=== PATIENT | male | born 1945 | race Native Hawaiian/Other Pacific Islander ===

== ENCOUNTER 2018-02-06 18:10 | Emergency (ER) | payer OTHER ==
[~2018-02-06] VITALS: Ht 162.6 cm; Wt 74.8 kg
[2018-02-06 19:28] LABS: PLATELET COUNT 269 K/uL (142-355)
[2018-02-06 19:50] LABS: POTASSIUM 3.7 mmol/L (3.6-5.2)
[2018-02-06 20:20] VITALS: BP 139/64; TEMP 97.8
[2018-02-07] MEDS ORDERED: CYAN10009 IM (00:10)
[2018-02-07] MEDS ORDERED: AMLODIPINE BESYLATE PO (00:11)
[2018-02-07] MEDS ORDERED: ASPIRIN 81 LOW81 MG PO (00:11)
[2018-02-07] MEDS ORDERED: RISP1TAB PO (00:12)
[2018-02-07] MEDS ORDERED: BENZTROPINE0.5 MG PO (00:15)
[2018-02-07] MEDS ORDERED: RISP2TAB2 PO (00:15)
[2018-02-07] MEDS ORDERED: SIMV10TA PO (00:17)
[2018-05-07] MEDS ORDERED: ASPI81TA4 PO (18:02)
[2018-05-07] MEDS ORDERED: BENZTROPINE0.5 MG PO (18:02)
[2018-05-07] MEDS ORDERED: AMLODIPINE BESYLATE PO (18:02)
[2018-05-07] MEDS ORDERED: MAGNSUS68 PO (18:03)
[2018-05-07] MEDS ORDERED: MAGNESIUM OXID400 M1 PO (18:04)
[2018-05-07] MEDS ORDERED: OXCARBAZEPIN150 MG PO (18:04)
[2018-05-07] MEDS ORDERED: RISP1TAB PO ×2 (18:06→18:07)
[2018-05-07] MEDS ORDERED: PANTOPRAZOLE 40MG TA PO (18:06)
[2018-05-07] MEDS ORDERED: OLANZAPINE5 MG PO (18:08)
[2018-05-07] MEDS ORDERED: MULTTAB52 PO (18:08)
[2018-05-07] MEDS ORDERED: SIMV10TA PO (18:08)
== END 2018-02-06 20:20 | disposition other institution (70) ==
LOC: ED 18:10
DX: G30.9 Alzheimer's disease, unspecified (principal); F02.80 Dementia in other diseases classified elsewhere, unspecified severity, without behavioral disturbance, psychotic disturbance, mood disturbance, and anxiety; Z00.8 Encounter for other general examination
CPT/HCPCS: 36415; 80053; 81000; 85027; 93005; 99285

== ENCOUNTER 2018-04-21 00:11 | Emergency (ER) | payer OTHER ==
[~2018-04-21] VITALS: Ht 162.6 cm; Wt 74.8 kg
[~2018-04-21 00:11] MED LIST: AMLODIPINE BESYLATE PO; ASPIRIN 81 LOW81 MG PO; BENZTROPINE0.5 MG PO; CYAN10009 IM; RISP1TAB PO; RISP2TAB2 PO; SIMV10TA PO
[2018-04-21 00:23] VITALS: BP 150/72; TEMP 98.4
[2018-04-21 00:38] LABS: PLATELET COUNT 281 K/uL (142-355)
[2018-04-21 00:47] LABS: POTASSIUM 3.8 mmol/L (3.6-5.2)
[2018-04-21] MEDS ORDERED: ASPI81TA4 PO (03:34)
[2018-04-21] MEDS ORDERED: MAGNESIUM OXID400 M1 PO (03:35)
[2018-04-21] MEDS ORDERED: RISP1TAB PO ×2 (03:37→03:41)
[2018-04-21] MEDS ORDERED: OXCARBAZEPIN150 MG PO (03:38)
[2018-04-21] MEDS ORDERED: BENZTROPINE0.5 MG PO (03:39)
[2018-04-21] MEDS ORDERED: SIMV10TA PO (03:42)
[2018-04-21] MEDS ORDERED: AMLODIPINE BESYLATE PO (03:49)
[2018-04-21] MEDS ORDERED: PANTOPRAZOLE 40MG TA PO (03:51)
[2018-04-21] MEDS ORDERED: MAGNSUS68 PO (03:52)
[2018-04-21] MEDS ORDERED: B-121000 MC4 PO (04:14)
== END 2018-04-21 01:57 | disposition other institution (70) ==
LOC: ED 00:11
PROVIDERS: Family Medicine
DX: F20.89 Other schizophrenia (principal); F65.89 Other paraphilias; R46.89 Other symptoms and signs involving appearance and behavior; Z04.6 Encounter for general psychiatric examination, requested by authority
CPT/HCPCS: 36415; 80053; 81000; 85027; 93005; 99285

== ENCOUNTER 2019-02-14 20:37 | Emergency (ER) | payer OTHER ==
[~2019-02-14] VITALS: Ht 162.6 cm; Wt 74.4 kg
[~2019-02-14 20:37] MED LIST changes: +ASPI81TA4 PO; +B-121000 MC4 PO; +MAGNESIUM OXID400 M1 PO; +MAGNSUS68 PO; +MULTTAB52 PO; +OLANZAPINE5 MG PO; +OXCARBAZEPIN150 MG PO; +PANTOPRAZOLE 40MG TA PO
[2019-02-14 21:35] LABS: PLATELET COUNT 309 K/uL (142-355)
[2019-02-14] MEDS ORDERED: LATANOPROST0.005 % OPTH (21:39)
[2019-02-14 22:04] LABS: POTASSIUM 4.3 mmol/L (3.6-5.2)
[2019-02-14 22:20] VITALS: BP 159/81; TEMP 98.1
== END 2019-02-14 22:20 | disposition still patient (30) ==
LOC: ED 20:37
PROVIDERS: Hospitalist
DX: F03.91 Unspecified dementia, unspecified severity, with behavioral disturbance (principal); F25.9 Schizoaffective disorder, unspecified; R00.1 Bradycardia, unspecified; I44.4 Left anterior fascicular block; Z04.6 Encounter for general psychiatric examination, requested by authority
CPT/HCPCS: 36415; 80053; 85027; 93005; 99285